=== PATIENT | male | born 2005 | race Caucasian/White ===

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

== ENCOUNTER 2023-02-21 17:37 | Emergency (ER) | payer OTHER, MEDICAID ==
[2023-02-21 18:16] VITALS: BP 115/81; PULSE 91
[2023-02-21] MEDS ORDERED: Orphenadrine 60 MG/2 ML Inj IM ONE (20:14)
[2023-02-21] MEDS ORDERED: Ketorolac 30 MG/ML SDV IM ONE (20:14)
[2023-02-21] MEDS ORDERED: Take Home: Cyclobenzaprine 10 MG Tab, 4 Tab Pack PO ONE (20:19)
== END 2023-02-21 20:57 | disposition home or self-care (01) ==
LOC: DL.ED 17:37
DX: S00.83XA Contusion of other part of head, initial encounter (principal); Z72.0 Tobacco use; V89.2XXA Person injured in unspecified motor-vehicle accident, traffic, initial encounter; Y92.410 Unspecified street and highway as the place of occurrence of the external cause
CPT/HCPCS: 70450; 72125; 96372; 99284; A9270; J1885; J2360